=== PATIENT | female | born 1985 | race American Indian/Alaskan Native ===

== ENCOUNTER 2017-05-12 09:16 | Emergency (ER) | payer SELFPAY ==
[2017-05-12 09:27] VITALS: BP 124/83
[2017-05-12 10:04] LABS: Hematocrit 33.8 % (30.3-42.9); Hemoglobin 11.3 gm/dl (10.1-14.3); Mean Corpuscular HGB Conc 33 % (30-34); Mean Corpuscular Hemoglobin 30 pg (28-32); Mean Corpuscular Volume 91 fl (79-97); Platelet Count 159 K/mm3 (140-440); Red Blood Count 3.71 M/mm3 (3.65-5.03); Red Cell Distribution Width 15.1 % (13.2-15.2); White Blood Count 5.6 K/mm3 (4.5-11.0)
[2017-05-12 10:43] LABS: Anisocytosis 1+; Blastocytes % (Manual) 0 %; Diff Status Complete; Large Platelets Rare; Ovalocytes 1+
[2017-05-12 11:18] LABS: Bilirubin,Urine NEG (Negative); Blood,Urine NEG (Negative); Ketones,Urine NEG (Negative); Leukocyte Esterase,Urine NEG (Negative); Mucus,Urine FEW /HPF; Nitrite,Urine NEG (Negative); Protein,Urine <15 mg/dL mg/dL (Negative); RBC,Urine < 1.0 /HPF (0.0-6.0); Urobilinogen,Urine < 2.0 mg/dL (<2.0); WBC,Urine < 1.0 /HPF (0.0-6.0)
--- NOTE | 2017-05-12 12:40 | Emergency Department Report ---
ED Female HPI - General Chief complaint: Vaginal Bleeding Stated complaint: VAGINAL BLEED, DIZZY Time Seen by Provider: 05/12/17 12:24 Source: patient Mode of arrival: Ambulatory Limitations: No Limitations - History of Present Illness Initial comments: 31-year-old female past medical history none 1 miscarriage presents with complaint of intermittent lower abdominal cramping with intermittent spotting for 3-4 days. Patient is currently . Last menstrual period March 13. Patient states that bleeding was initially spotting on Wednesday she got progressively heavier and has since decreased. Patient denies fevers chills dysuria or increased urinary frequency flank pain nausea or vomiting. Does not currently have care. MD Complaint: vaginal bleeding Onset/Timin -: days(s) Location: suprapubic Severity: mild Quality: cramping Consistency: constant Are you Now?: Yes Last Menstrual Period: 03/13/17 EDC: 12/18/17 - Related Data Sexually active: Yes : 6 Para: 4 A: 1 Home Medications Medication Instructions Recorded Confirmed Last Taken ALBUTEROL Inhaler [ProAir HFA 1 puff INHALATION PRN PRN 05/19/13 12/05/13 Unknown Inhaler] Previous Rx's Medication Instructions Recorded Last Taken Type Prednisone [Prednisone 10 mg 10 mg PO .TAPER #1 tab.ds.pk 12/05/13 Unknown Rx (6-Day Pack, 21 Tabs)] Triamcinolone Acetonide 80 gm TP BID #80 gm 12/05/13 Unknown Rx [Triamcinolone Acetonide Cream 0.1%] Clindamycin [Clindamycin CAP] 300 mg PO Q6H #28 capsule 03/24/14 Unknown Rx HYDROcodone/APAP 5-325 [[place] 1 each PO Q6HR PRN #14 tablet 03/24/14 Unknown Rx 5/325] Pnv No.95/Ferrous Fum/Folic AC 1 each PO QDAY #30 tablet 05/12/17 Unknown Rx [ Formula Tablet] Allergies Allergy/AdvReac Type Severity Reaction Status Date / Time metronidazole [From Flagyl] AdvReac tingling Verified 03/24/14 14:46 ED Review of Systems ROS: Stated complaint: VAGINAL BLEED, DIZZY Other details as noted in HPI Constitutional: denies: chills, fever Eyes: denies: eye pain, eye discharge, vision change ENT: denies: ear pain, throat pain Respiratory: denies: cough, shortness of breath, wheezing Cardiovascular: denies: chest pain, palpitations Endocrine: no symptoms reported Gastrointestinal: denies: abdominal pain, nausea, diarrhea Genitourinary: denies: urgency, dysuria, discharge Musculoskeletal: denies: back pain, joint swelling, arthralgia Skin: denies: rash, lesions Neurological: denies: headache, weakness, paresthesias Psychiatric: denies: anxiety, depression Hematological/Lymphatic: denies: easy bleeding, easy bruising ED Past Medical Hx - Past Medical History Hx Asthma: Yes Additional medical history: Eczema - Social History Smoking Status: Never Smoker Substance Use Type: None - Medications Home Medications: Home Medications Medication Instructions Recorded Confirmed Last Taken Type ALBUTEROL Inhaler [ProAir HFA 1 puff INHALATION PRN PRN 05/19/13 12/05/13 Unknown History Inhaler] Prednisone [Prednisone 10 mg 10 mg PO .TAPER #1 tab.ds.pk 12/05/13 Unknown Rx (6-Day Pack, 21 Tabs)] Triamcinolone Acetonide 80 gm TP BID #80 gm 12/05/13 Unknown Rx [Triamcinolone Acetonide Cream 0.1%] Clindamycin [Clindamycin CAP] 300 mg PO Q6H #28 capsule 03/24/14 Unknown Rx HYDROcodone/APAP 5-325 [[place] 1 each PO Q6HR PRN #14 tablet 03/24/14 Unknown Rx 5/325] Pnv No.95/Ferrous Fum/Folic AC 1 each PO QDAY #30 tablet 05/12/17 Unknown Rx [ Formula Tablet] ED Physical Exam - General Limitations: No Limitations General appearance: alert, in no apparent distress - Head Head exam: Present: atraumatic, normocephalic - Eye Eye exam: Present: normal appearance, PERRL, EOMI - ENT ENT exam: Present: mucous membranes moist - Neck Neck exam: Present: normal inspection, full ROM - Respiratory Respiratory exam: Present: normal lung sounds bilaterally. Absent: respiratory distress - Cardiovascular Cardiovascular Exam: Present: regular rate, normal rhythm. Absent: systolic murmur, diastolic murmur, rubs, gallop - GI/Abdominal GI/Abdominal exam: Present: soft (abdomen soft nontender nondistended 4 quadrants, slight suprapubic pain), normal bowel sounds - External exam: Present: normal external exam Speculum exam: Present: normal speculum exam (no blood on speculum exam no vaginal bleeding or cervical bleeding and no tissue visible sticking out of os) Bi-manual exam: Present: normal bi-manual exam - Extremities Exam Extremities exam: Present: normal inspection - Back Exam Back exam: Present: normal inspection - Neurological Exam Neurological exam: Present: alert, oriented X3, CN II-XII intact, normal gait - Psychiatric Psychiatric exam: Present: normal affect, normal mood - Skin Skin exam: Present: warm, dry, intact, normal color. Absent: rash ED Course Vital Signs 05/12/17 05/12/17 09:24 11:40 Temperature 98.8 F Pulse Rate 78 Respiratory 18 Rate Blood Pressure 124/83 O2 Sat by Pulse 100 100 Oximetry ED Medical Decision Making - Lab Data Result diagrams: 05/12/17 09:38 - Medical Decision Making A/P: Threatened miscarriage, vaginal bleeding during 1-ultrasound so shingle live IUP with small subchorionic bleed 2-urinalysis unremarkable, H&H stable, blood type O positive 3-wet prep unremarkable, GC culture sent 4- start patient on vitamins. I reinforced the importance of follow- up with [facility] to the patient. I explained to her that subchorionic bleeds may indicate a possible impending miscarriage but it is unknown if this will occur with certainty. I advised her that it is extremely important to follow up with [facility] and gave her multiple referrals. Critical care attestation.: If time is entered above; I have spent that time in minutes in the direct care of this critically ill patient, excluding procedure time. ED Disposition Clinical Impression: Vaginal bleeding during , antepartum, Threatened miscarriage Disposition: TO HOME OR SELFCARE Is pt being admited?: No Does the pt Need Aspirin: No Condition: Stable Instructions: Threatened Miscarriage (ED), (ED) Prescriptions: Pnv No.95/Ferrous Fum/Folic AC [ Formula Tablet] 1 each PO QDAY #30 tablet Referrals: [facility] [Provider Group] - 3-5 Days [facility] [Provider Group] - 3-5 Days [facility] [Provider Group] - 3-5 Days Forms: Work/School Release Form(ED) Time of Disposition: 13:38
--- NOTE | 2017-05-12 13:18 | Ultrasound Report ---
Pelvic and transvaginal sonography: History: Vaginal bleeding. Findings: Uterus measures 9.3 x 6 x 7.7 cm. Single intrauterine gestation is noted. CRL of free dose is 21.5 mm corresponding to 8 weeks and 6 days of gestation. Moderate subchorionic bleed. heart rate 179 per minute. Right ovary 2.4 x 1 x 1.5 cm. No mass. Left ovary 3.2 x 1.3 x 2 cm. No mass. Impression: Single viable intrauterine gestation.
[2017-05-12 14:09] LABS: BUN/Creatinine Ratio 16; Blood Urea Nitrogen 8 mg/dL (7-17); Calcium 9.2 mg/dL (8.4-10.2); Carbon Dioxide 20 mmol/L (22-30); Glucose 62 mg/dL (65-100)
[2017-05-12 14:10] LABS: Anion Gap 22 mmol/L; Chloride 97.4 mmol/L (98-107); Potassium 3.6 mmol/L (3.6-5.0); Sodium 136 mmol/L (137-145)
== END 2017-05-12 13:51 | disposition home or self-care (01) ==
LOC: ED 09:16
DX: O20.0 Threatened abortion (principal); Z3A.08 8 weeks gestation of pregnancy; Z88.8 Allergy status to other drugs, medicaments and biological substances
CPT/HCPCS: 36415; 76801; 76817; 80048; 81001; 84702; 85007; 85025; 86850; 86900; 86901; 87210; 87591; 99284

== ENCOUNTER 2019-03-20 11:30 | Outpatient (CLI) | payer OTHER ==
--- NOTE | 2019-03-20 13:17 | Ultrasound Report ---
TRANSABDOMINAL PELVIC AND TRANSVAGINAL ULTRASOUND HISTORY: ABNORMAL UTERINE BLEEDING COMPARISON: None. TECHNIQUE: Routine transabdominal and transvaginal pelvic ultrasound performed. FINDINGS: TRANSABDOMINAL PELVIC ULTRASOUND: Uterus: Normal size and echogenicity without uterine mass. Mildly heterogeneous myometrium with no di screte fibroids identified. The uterus measures 8.8 x 4.2 x 5.7 cm. Endometrium: Thickened Right Ovary: Normal. Left Ovary: Normal. Additional findings: Transvaginal exam was performed for better delineation of the endometrium and ov robin. TRANSVAGINAL PELVIC ULTRASOUND: Uterus: Normal size with heterogeneous myometrium. No measurable fibroids. Endometrium: Thickened secretory endometrium measuring 14 mm. Right Ovary: Normal size, blood flow and appearance measuring 3.9 x 1.9 x 2.9 cm. Dominant follicle measures 1.7 cm. Left Ovary: Normal size, blood flow and appearance measuring 2.5 x 1.2 x 1.9 cm. Dominant follicle m easures 2.5 cm. Additional findings: Minimal free fluid in the pelvis. IMPRESSION: 1. Normal size uterus but a heterogeneous myometrium suggests possible small fibroids which are too s mall to measure. 2. Thickened secretory endometrium which is normal. 3. Normal ovaries with normal follicles. Signer Name: Lamine Kay MD Signed: 03/20/2019 1:13 PM Workstation Name: [id number]
== END 2019-03-20 11:31 | disposition home or self-care (01) ==
LOC: SPVWC 11:30
PROVIDERS: ATTEND Nurse Practitioner Women's Health
DX: N93.9 Abnormal uterine and vaginal bleeding, unspecified (principal); J45.909 Unspecified asthma, uncomplicated
CPT/HCPCS: 76830; 76856

== ENCOUNTER 2020-01-28 12:24 | Inpatient (IN) | payer OTHER ==
[2020-01-28] MEDS ORDERED: AMPICILLIN/NS 2 GM/100 ML 2 GM/100 ML BAG IV ONE (13:08)
[2020-01-28] MEDS ORDERED: LIDOCAINE (2%) 20 MG/1 ML VIAL 20 ML MDV INFILTRATI ONE (13:08)
[2020-01-28] MEDS ORDERED: TERBUTALINE 1 MG/1 ML INJ SUB-Q PRN (13:08)
[2020-01-28] MEDS ORDERED: ACETAMINOPHEN 325 MG TAB PO PRN ×2 (13:08→22:12)
[2020-01-28] MEDS ORDERED: ePHEDrine SULFATE 50 MG/1 ML INJ IV PRN (13:08)
[2020-01-28] MEDS ORDERED: MINERAL OIL 30 ML ORAL LIQD PO PRN (13:08)
[2020-01-28 13:42] LABS: Hematocrit 28.5 % (30.3-42.9); Hemoglobin 9.5 gm/dl (10.1-14.3); Mean Corpuscular HGB Conc 33 % (30-34); Mean Corpuscular Volume 88 fl (79-97); Platelet Count 152 K/mm3 (140-440); Red Blood Count 3.23 M/mm3 (3.65-5.03); Red Cell Distribution Width 15.7 % (13.2-15.2)
[2020-01-28] MEDS ORDERED: LACTATED RINGERS 1,000 ML IV SCH (14:00)
[2020-01-28] MEDS: OXYTOCIN DRIP 30 UNITS/500 ML BAG IV SCH ×4 (15:44→17:18)
[2020-01-28] MEDS: OXYTOCIN 20 UNIT/1000ML DRIP 20 UNITS/1,000 ML BAG IV SCH ×2 (17:50→18:49)
[2020-01-28] MEDS ORDERED: AMPICILLIN/NS 1 GM/50 ML 1 GM/50 ML BAG IV SCH (18:00)
--- NOTE | 2020-01-28 18:26 | History and Physical Report ---
History of Present Illness Date of examination: 01/28/20 Date of admission: 01/28/20 14:02 Chief complaint: My water broke History of present illness: Pt is a 34 year old who presents with complaint of prom in the absence of contractions. Pt reports and uncomplicated course however records are not available for review. Past History Past Medical History: no pertinent history Past Surgical History: no surgical history Social history: single - Obstetrical History Expected Date of Delivery: 02/06/20 Actual Gestation: 38 Week(s) 5 Day(s) : 7 Para: 4 Number of Living Children: 4 Medications and Allergies Allergies Allergy/AdvReac Type Severity Reaction Status Date / Time metronidazole [From Flagyl] AdvReac tingling Verified 03/24/14 14:46 Home Medications Medication Instructions Recorded Confirmed Last Taken Type Albuterol Mdi (or & Nicu Only) 1 puff INHALATION PRN PRN 05/19/13 01/28/20 11/13/19 12:00 History [ProAir HFA Inhaler] Pnv No.95/Ferrous Fum/Folic AC 1 each PO QDAY #30 tablet 05/12/17 01/28/20 01/28/20 10:00 Rx [ Formula Tablet] Ferrous Sulfate [Iron 325 MG] 325 mg PO BID 01/28/20 01/28/20 01/26/20 22:00 History Active Meds: Active Medications Acetaminophen (Tylenol) 650 mg PO Q4H PRN PRN Reason: Pain, Mild (1-3) Ephedrine Sulfate (Ephedrine Sulfate) 10 mg IV Q2M PRN PRN Reason: Hypotension Oxytocin/Sodium Chloride (Pitocin/Ns 30 Unit/500ml) 30 units in 500 mls @ 4 mls/hr IV TITR TUNDE; Protocol Last Admin: 01/28/20 17:18 Dose: 16 ml/hr, 16 mls/hr Documented by: Lactated Ringer's (Lactated Ringers) 1,000 mls @ 125 mls/hr IV DIRECT TUNDE Last Admin: 01/28/20 14:08 Dose: 125 mls/hr Documented by: Oxytocin/Sodium Chloride (Pitocin/Ns 20 Unit/1000ml Drip) 20 units in 1,000 mls @ 125 mls/hr IV DIRECT TUNDE Ampicillin Sodium (Ampicillin/Ns 1 Gm/50 Ml) 1 gm in 50 mls @ 100 mls/hr IV Q4HR TUNDE; Protocol Mineral Oil (Mineral Oil) 30 ml PO QHS PRN PRN Reason: Constipation Terbutaline Sulfate (Brethine) 0.25 mg SUB-Q ONCE PRN PRN Reason: Hyperstimulation/Hypertonicity Review of Systems All systems: negative Genitourinary: leakage of fluid - Vital Signs Vital signs: Vital Signs Pulse BP 96 H 113/79 01/28/20 12:50 01/28/20 12:50 Temp Pulse Resp BP Pulse Ox 98.6 F 76 18 130/79 100 01/28/20 18:03 01/28/20 18:18 01/28/20 18:18 01/28/20 18:18 01/28/20 13:17 - Physical Exam Breasts: Cardiovascular: Regular rate, Normal S1, Normal S2 Abdomen: Positive: normal appearance, soft, normal bowel sounds. Negative: distention, tenderness Genitourinary (Female): Positive: normal external genitalia Vulva: both: normal Vagina: Positive: normal moisture. Negative: discharge Cervix: Negative: lesion, discharge Uterus: Positive: normal size, normal contour Adnexa: both: normal Anus/Rectum: Positive: normal perianal skin, heme negative. Negative: rectal mass, hemorrhoids Extremities: Deep Tendon Reflex Grade: Normal +2 - Obstetrical Cervical Dilatation: 1 Cervical Effacement Percentage: 50 station: -3 Uterine Contraction Pattern: Irregular Uterine Tone Measurement Phase: Resting Uterine Contraction Intensity: Mild Results Result Diagrams: 01/28/20 13:15 Abnormal lab results 01/28/20 Range/Units 13:15 RBC 3.23 L (3.65-5.03) M/mm3 Hgb 9.5 L (10.1-14.3) gm/dl Hct 28.5 L (30.3-42.9) % RDW 15.7 H (13.2-15.2) % All other labs normal. Assessment and Plan IUP @ 38.5 weeks with prom. Will admit for augmentation. Treat for GBS unknown. Anticipate .
--- NOTE | 2020-01-28 18:27 | Procedure Note ---
OB Delivery Note - Delivery Date of Delivery: 01/28/20 Surgeon: SURAJ OJEDA Estimated blood loss: 200cc - Vaginal Delivery presentation: vertex Delivery position: OA Intrapartum events: PROM->1hr before delivery, precipitous labor- <3hr Delivery induction: none Delivery augmentation: pitocin Delivery monitor: external FHT, external uterine Route of delivery: Delivery placenta: spontaneous Delivery cord: 3 umbilical vessels Episiotomy: none Delivery laceration: none Anesthesia: none - A at 1 minute: 8 at 5 minutes: 9 Infant Gender: Male (5 pounds 6 ounces)
[2020-01-28] MEDS ORDERED: ONDANSETRON 4 MG/2 ML INJ IV PRN (22:12)
[2020-01-28] MEDS ORDERED: WITCH HAZEL/ GLYCERIN PAD TP PRN (22:12)
[2020-01-28] MEDS ORDERED: diphenhydrAMINE 25 MG CAP PO PRN (22:12)
[2020-01-28] MEDS ORDERED: PROMETHAZINE 25 MG RECT SUPP PR PRN (22:12)
[2020-01-28] MEDS ORDERED: MAGNESIUM HYDROXIDE (MOM) ORAL LIQD UDC PO PRN (22:12)
[2020-01-28] MEDS ORDERED: LANOLIN/ZINC/DIMETHICONE (LANSINOH) 7 GM TP PRN (22:12)
[2020-01-28] MEDS ORDERED: PROMETHAZINE 25 MG TAB PO PRN (22:12)
[2020-01-28] MEDS ORDERED: HYDROcodone/ACETAMINOPHEN 5-325 MG TAB PO PRN (22:12)
[2020-01-28] MEDS: IBUPROFEN 600 MG TAB PO SCH (23:06)
[2020-01-28] MEDS: DOCUSATE SODIUM 100 MG CAP PO SCH (23:06)
[2020-01-29] MEDS: IBUPROFEN 600 MG TAB PO SCH ×2 (05:53→20:38)
[2020-01-29 08:30] LABS: Hematocrit 24.7 % (30.3-42.9); Hemoglobin 8.2 gm/dl (10.1-14.3)
--- NOTE | 2020-01-29 08:35 | Progress Note ---
Assessment and Plan A: PPD#1 s/p at term Rectal pain P: Tucks pads PRN Routine care Discharge tomorrow Subjective - Subjective Date of service: 01/29/20 Principal diagnosis: s/p at term, AMA Interval history: Pt c/o rectal pain this morning. Otherwise no complaints. Patient reports: appetite normal, voiding normally, pain well controlled, ambulating normally : doing well Objective - Vital Signs Latest vital signs: Vital Signs Temp Pulse Resp BP BP Pulse Ox 01/29/20 05:53 16 01/29/20 05:21 98.2 F 50 L 18 112/63 99 01/28/20 23:06 16 01/28/20 20:55 98.3 F 82 16 115/74 90 01/28/20 20:45 98.4 F 18 01/28/20 20:33 83 101/56 01/28/20 20:22 18 01/28/20 20:17 90 105/58 01/28/20 20:13 67 109/58 01/28/20 19:47 70 114/69 01/28/20 19:33 85 115/69 01/28/20 19:18 67 115/61 01/28/20 19:03 69 113/70 01/28/20 18:49 65 16 115/65 115/65 01/28/20 18:33 84 16 137/82 137/82 01/28/20 18:18 76 18 130/79 130/79 01/28/20 18:03 98.6 F 75 18 118/73 118/73 01/28/20 17:18 76 109/66 01/28/20 16:47 90 106/59 01/28/20 16:13 98.6 F 84 18 96/62 01/28/20 16:12 84 96/62 01/28/20 15:42 104 H 124/59 01/28/20 14:30 98.0 F 01/28/20 13:41 71 100/68 01/28/20 13:17 80 100 01/28/20 13:12 79 100 01/28/20 13:07 92 H 100 01/28/20 13:02 79 100 01/28/20 12:57 72 96 01/28/20 12:52 85 100 01/28/20 12:50 96 H 113/79 Intake and Output 01/28/20 01/29/20 01/29/20 22:59 06:59 14:59 Intake Total 1160.250 360 Output Total 500 Balance 1160.250 -140 Intake: IV 1160.250 PITOCin/NS 20 UNIT/1000ML 1122.917 DRIP 20 units In 1,000 ml @ 125 mls/hr IV DIRECT TUNDE Rx#:[id number] PITOCin/NS 30 UNIT/500ML 37.333 30 units In 500 ml @ 4 mls/hr IV TITR TUNDE Rx#: [id number] Oral 120 Intake, Free Water 240 Output: Urine 500 Void 500 Other: Total, Intake Amount 120 Total, Output Amount 200 Estimated Blood Loss 200 - Exam Breasts: Present: deferred Abdomen: Present: soft Uterus: Present: fundal height below umbilicus Extremities: Present: normal - Labs Labs: Abnormal lab results 01/28/20 01/29/20 Range/Units 13:15 07:28 RBC 3.23 L (3.65-5.03) M/mm3 Hgb 9.5 L 8.2 L (10.1-14.3) gm/dl Hct 28.5 L 24.7 L (30.3-42.9) % RDW 15.7 H (13.2-15.2) %
--- NOTE | 2020-01-29 08:35 | Discharge Summary ---
Providers - Providers Date of Admission: 01/28/20 14:02 Date of discharge: 01/30/20 Attending physician: CHECO PARKS Primary care physician: JUAN GARCIA Hospitalization Reason for admission: rupture of membranes Delivery: Procedure details: Please see delivery note. Episiotomy: none Laceration: none Other procedures: none complications: none Discharge diagnosis: IUP at term delivered baby: male Hospital course: Pt was admitted with rupture of membranes at term and went on to have a spontaneous vaginal delivery which she tolerated well. Her course was uncomplicated, and she met discharge criteria on PPD#2. She will follow up in 4 wks in the office. Condition at discharge: Stable Disposition: - TO HOME OR SELFCARE - Discharge Diagnoses (1) Term of male Status: Acute (2) Advanced maternal age (AMA) in Status: Acute (3) Acute on chronic anemia Status: Acute Plan - Discharge Medications Prescriptions: Ferrous Sulfate [Feosol 325 MG tab] 325 mg PO BID #60 tablet Ibuprofen [Motrin] 600 mg PO Q6H PRN #30 tablet PRN Reason: Pain HYDROcodone/APAP 5-325 [[place] 5/325] 1 each PO Q6HR PRN #15 tablet PRN Reason: Pain - Provider Discharge Summary Activity: routine, no sex for 6 weeks, no heavy lifting 4 weeks, no strenuous exercise Diet: routine Instructions: routine Additional instructions: [] Smoking cessation referral if applicable(refer to patient education folder for contact #) [] Refer to [facility] Booklet Call your doctor immediately for: * Fever > 100.5 * Heavy vaginal bleeding ( >1 pad per hour) * Severe persistent headache * Shortness of breath * Reddened, hot, painful area to leg or breast * Drainage or odor from incision. * Keep incision clean and dry at all times and follow doctor's instructions regarding bathing/showering Please schedule your son's circumcision before he is one month old. - Follow up plan Follow up: JUAN GARCIA MD [Primary Care Provider] - 7 Days LESA FELIX NP [Referring] - 02/26/20 (Please call to schedule your appt. Please schedule your son's circumcision before he is one month old. )
[2020-01-29] MEDS: DOCUSATE SODIUM 100 MG CAP PO SCH (20:38)
[2020-01-29] MEDS: PRENATAL VIT27-FE FUMARATE-FOLIC ACID VIT TAB PO SCH (20:38)
[2020-01-30] MEDS: IBUPROFEN 600 MG TAB PO SCH ×3 (07:34→13:15)
[2020-01-30] MEDS: DOCUSATE SODIUM 100 MG CAP PO SCH (09:30)
[2020-01-30] MEDS: PRENATAL VIT27-FE FUMARATE-FOLIC ACID VIT TAB PO SCH (09:30)
[2020-01-30 15:22] VITALS: BP 135/82
== END 2020-01-30 15:05 | disposition home or self-care (01) | DRG 775 ==
LOC: TRG 12:24 → APU 12:26 → TRG 13:11 → LD 14:02 → OB 21:05
PROVIDERS: ADMIT Obstetrics & Gynecology; ATTEND Obstetrics & Gynecology
PROC: 10E0XZZ Delivery of Products of Conception, External Approach (ICD-10-PCS; principal; 2020-01-28)
DX: O42.92 Full-term premature rupture of membranes, unspecified as to length of time between rupture and onset of labor (principal); O62.3 Precipitate labor; O09.529 Supervision of elderly multigravida, unspecified trimester; Z37.0 Single live birth; O90.81 Anemia of the puerperium; D64.9 Anemia, unspecified; Z88.3 Allergy status to other anti-infective agents; Z3A.38 38 weeks gestation of pregnancy
CPT/HCPCS: 36415; 85014; 85018; 85027; 86592; 86706; 86762; 86850; 86900; 86901; 87806; G0378; J0290; J2590; J7120